=== PATIENT | female | born 1985 | race Caucasian/White ===

== ENCOUNTER → 2019-04-06 13:32 | Outpatient (CLI) | payer OTHER, SELFPAY ==
--- NOTE | 2019-04-06 | PATH_ITS ---
Note [facility] Accession Number: [id number] TESTS RESULT FLAG UNITS REF RANGE LAB Clinician Provided Cytology Information No. of containers..01 ThinPrep Vial No. of containers..08 Previously Prepared Cytology Slide LEFT THYROID DIAGNOSIS: 02 LEFT THYROID NEGATIVE FOR MALIGNANT CELLS. B[place] CATEGORY III. FOLLICULAR LESION OF UNDETERMINED SIGNIFICANCE. SPECIMEN CONSISTS OF SCATTERED FOLLICULAR CELLS WITH SCANT COLLOID. THE DIFFERENTIAL DIAGNOSIS INCLUDES CELLULAR ADENOMATOID NODULE AND FOLLICULAR NEOPLASM. Pathologist ICD10: 02 R89.6, E04.2 01 PATIENT PRESENTS WITH A HISTORY OF MULTINODULAR GOITER. SHE HAS A HISTORY OF HYPOTHYROIDISM AND IS TAKING SYNTHROID. MORE RECENTLY SHE STARTING HAVING SOME PAIN IN HER ANTERIOR NECK AND DYSPHAGIA. ULTRASOUND DEMONSTRATED A PREDOMINANT RIGHT-SIDED THYROID NODULE MEASURING UP TO 3.8 CM IN LARGEST DIMENSION AND A SMALLER NODULE ON THE LEFT STILL MEASURING OVER 2 CM. SHE HAS NOT HAD ANY SORT OF BIOPSY. 02 Lenora Lockett MD, Pathologist NPI- [id number] Debbie Underwood, Surveillance Inspector ([facility]) 01 30 CC, COLORLESS, CLEAR RECEIVED: 4 ALCOHOL FIXED AND 4 QUICK STAINED SLIDES WITH 1 RNA VIAL FOR FURTHER TESTING. /VDU FLAG LEGEND: L-Low Normal,H-High Normal,LL-Alert Low,HH-Alert High <-Panic Low,>-Panic High,A-Abnormal,AA-Critical Abnormal Performed at: 01 =Z [facility] [address] [place] [address] [address], [place] [address] Sergio Joaquin MD, 02 [facility] [address] [place] [address] Karely Murdock MD, Specimen Comment: A duplicate report has been generated due to demographic updates. Performed at: 01 [facility] [address] [place] [address], [place], [place] [id number] MD Sergio Joaquin MD Phone: [phone]
--- NOTE | 2019-04-06 | DI.US.S_ITS ---
PROCEDURE: US FINE NEEDLE ASPIRATION INDICATIONS: Thyroid masses bilaterally, bilateral ultrasound-guided thyroid biopsy today. TECHNIQUE: The indications, alternatives, benefits, risks, and complications of the procedure were explained to the patient. Written informed consent was obtained and placed in the chart. The thyroid gland bilaterally was examined sonographically and a site was chosen for ultrasound guided percutaneous sampling at the right and also sequentially the left dominant thyroid nodules previously documented. The skin was prepared and draped in the usual fashion, and anesthetized with 1% lidocaine infiltrated from the skin down to the thyroid gland. Multiple passes were then performed, with contents emptied into an appropriate pathology specimen container. A bandage was applied to the area of access at completion of the study. COMPARISON: [facility], , US THYROID, 03/07/2019, 11:39. FINDINGS: Location(s) of lesion(s) sampled: Right thyroid nodule first, then left thyroid nodule. The right thyroid nodule is larger than that on the left. [place]: 25 gauge hypodermic needles. Number of passes: 5 passes on the right, then 5 passes on the left. Medications: 1% lidocaine for local anaesthesia. Complications: None. IMPRESSION: Successful ultrasound-guided thyroid nodule fine needle aspiration, with cytology results pending. Please see chart below for management recommendations based on cytology results. [place] [facility] ReportingRecommendationsNon-diagnostic* Repeat US-guided FNA, with on-site cytology evaluation if possible. * Repeated non-diagnostic nodules without high suspicion US features: close observation vs surgical consult. * Consider surgery if nodule has high suspicion US features, grows >20% in 2 dimensions on followup, or patient has clinical risk factors for malignancy. Benign* If nodule has high suspicion US features: repeat US and FNA within 12 months. * If nodule has low to intermediate suspicion US features: repeat US at 12-24 months. If nodule grows (20% increase in at least 2 dimensions, with minimal increase of 2 mm or >50% change in volume), or development of new suspicious US features, then repeat FNA or continue followup. * If nodule has very low suspicion US features: followup US at >24 months. Atypia of undetermined significance, follicular lesion of undetermined significanceRepeat FNA, molecular testing, followup US, or surgical consult.Follicular neoplasm, suspicious for follicular neoplasmSurgical consult; also consider molecular testing. Suspicious for malignancySurgical consult.MalignantSurgical consult. Dictated by: Yefri Acosta M.D. on 04/06/2019 at 15:35 Approved by: Yefri Acosta M.D. on 04/06/2019 at 15:36
--- NOTE | 2019-04-06 | PATH_ITS ---
Note [facility] Accession Number: [id number] TESTS RESULT FLAG UNITS REF RANGE LAB Clinician Provided Cytology Information No. of containers..01 ThinPrep Vial No. of containers..08 Previously Prepared Cytology Slide RIGHT THYROID DIAGNOSIS: 02 RIGHT THYROID NEGATIVE FOR MALIGNANT CELLS. B[place]ES[place] CATEGORY II. SPECIMEN IS HYPOCELLULAR AND CONSISTS OF BENIGN FOLLICULAR CELLS, COLLOID, AND BLOOD. THIS PATTERN IS CONSISTENT WITH A BENIGN FOLLICULAR NODULE. Pathologist ICD10: 02 E04.1 01 PATIENT PRESENTS WITH A HISTORY OF MULTINODULAR GOITER. SHE HAS A HISTORY OF HYPOTHYROIDISM AND IS TAKING SYNTHROID. MORE RECENTLY SHE STARTING HAVING SOME PAIN IN HER ANTERIOR NECK AND DYSPHAGIA. ULTRASOUND DEMONSTRATED A PREDOMINANT RIGHT-SIDED THYROID NODULE MEASURING UP TO 3.8 CM IN LARGEST DIMENSION AND A SMALLER NODULE ON THE LEFT STILL MEASURING OVER 2 CM. SHE HAS NOT HAD ANY SORT OF BIOPSY. 02 Lenora Lockett MD, Pathologist NPI- [id number] Debbie Underwood, Vice President Of Compliance ([facility]) 01 30 CC, PINK, CLEAR RECEIVED: 4 ALCOHOL FIXED AND 4 QUICK STAINED SLIDES WITH 1 RNA VIAL FOR FURTHER TESTING. /[place] FLAG LEGEND: L-Low Normal,H-High Normal,LL-Alert Low,HH-Alert High <-Panic Low,>-Panic High,A-Abnormal,AA-Critical Abnormal Performed at: 01 =Z [facility] [address] [place] [address] [address] [facility], [place] [address] Sergio Joaquin MD, 02 [facility] [address] [place] [phone] Karely Murdock MD, Performed at: 01 [facility] [address] [place] [address], [place], [place] [id number] MD Sergio Joaquin MD Phone: [phone]
== END ==
PROVIDERS: Visit Provider Otolaryngology
DX: E04.2 Nontoxic multinodular goiter (principal); E03.9 Hypothyroidism, unspecified
CPT/HCPCS: 10005; 10006

== ENCOUNTER → 2025-10-23 14:04 | Outpatient (CLI) | payer OTHER, SELFPAY ==
--- NOTE | 2025-10-23 14:05 | DI.US.S_ITS ---
PROCEDURE: US ABDOMEN LIMITED INDICATIONS: r.o gallbladder stones TECHNIQUE: Real-time scanning was performed of the abdominal and retroperitoneal organs, with image documentation. COMPARISON: None. FINDINGS: Liver: Liver is normal in size and homogeneous in echotexture. Gallbladder: No gallstones. No wall thickening. No pericholecystic edema. Negative sonographic Zee's sign. Biliary ducts: Intrahepatic bile ducts are non-dilated. Extrahepatic bile duct caliber measures 5.9 mm. Normal is 6-7 mm or less in diameter, or 10 mm or less post-cholecystectomy. Pancreas: Visualized portions of the pancreas are sonographically normal. Miscellaneous: No free abdominal fluid. IMPRESSION: No cholelithiasis or sonographic evidence of acute cholecystitis. Approved by: Cari Rubin M.D.,Ph.D. on 10/25/2025 at 7:42
== END ==
LOC: US 14:04
DX: R10.11 Right upper quadrant pain (principal)
CPT/HCPCS: 76705